=== PATIENT | female | born 1965 | race American Indian/Alaskan Native ===

== ENCOUNTER 2018-11-19 20:58 | Emergency (ER) | payer OTHER ==
[2018-11-19] MEDS ORDERED: DUONEB *Not for PRN Use IH ONE (21:33)
--- NOTE | 2018-11-19 21:35 | Emergency Department Report ---
Blank Doc - Documentation Documentation: 53 y o female hx of asthma presents with coughing and asthma flare up duoneb in traige cxr
--- NOTE | 2018-11-19 22:48 | XRay Report ---
PROCEDURE: XR CHEST ROUTINE 2V TECHNIQUE: PA and lateral chest radiographs were obtained. HISTORY: cough and wheezing COMPARISONS: None. FINDINGS: The cardiomediastinal silhouette appears normal. The lungs are clear. The bones and soft tissues are unremarkable. IMPRESSION: No evidence of acute cardiopulmonary disease. This document is electronically signed by Deepthi Quezada MD., November 19 2018 10:46:17 PM ET
--- NOTE | 2018-11-19 23:54 | Emergency Department Report ---
ED General Adult HPI - General Chief complaint: Dyspnea/Respdistress Stated complaint: ASTHMA Time Seen by Provider: 11/19/18 21:32 Source: patient Mode of arrival: Ambulatory Limitations: No Limitations - History of Present Illness Initial comments: Patient is a 53-year-old [place] female history of asthma or shortness of breath wheezing cough 2 days call if not improving with albuterol inhaler patient denies chest pain no nausea vomiting no diaphoresis no back pain as a symptoms are at 3/10. Symptoms are exacerbated by environmental exposure, s ymptoms are relieved temporarily by albuterol inhaler Onset/Timin -: days(s) Location: head, chest Radiation: non-radiation Severity scale (0 -10): 3 Quality: constant Consistency: constant Improves with: other (albuterol ) Worsens with: other (environmental exposure ) Associated Symptoms: cough, shortness of breath, other (wheezing ) Treatments Prior to Arrival: none - Related Data Previous Rx's Medication Instructions Recorded Last Taken Type ALBUTEROL Inhaler (OR & NICU) 2 puff IH QID PRN #1 inhalation 11/19/18 Unknown Rx [ProAir HFA Inhaler] Azithromycin [Zithromax Z-LAUREN] 250 mg PO DAILY #6 tab 11/19/18 Unknown Rx Codeine Phosphate/Guaifenesin 5 ml PO TID PRN #120 ml 11/19/18 Unknown Rx [Guaifenesin-Codeine Syrup] Ibuprofen [Motrin 800 MG tab] 800 mg PO Q8HR PRN #30 tablet 11/19/18 Unknown Rx predniSONE [Deltasone] 20 mg PO QDAY 5 Days #10 tab 11/19/18 Unknown Rx Allergies Allergy/AdvReac Type Severity Reaction Status Date / Time No Known Allergies Allergy Unverified 11/19/18 21:02 ED Review of Systems ROS: Stated complaint: ASTHMA Other details as noted in HPI Constitutional: denies: chills, fever Eyes: denies: eye pain, eye discharge, vision change ENT: throat pain, congestion. denies: ear pain Respiratory: cough, shortness of breath, wheezing Cardiovascular: denies: chest pain, palpitations Endocrine: no symptoms reported Gastrointestinal: denies: abdominal pain, nausea, diarrhea Genitourinary: denies: urgency, dysuria, discharge Musculoskeletal: denies: back pain, joint swelling, arthralgia Skin: denies: rash, lesions Neurological: denies: headache, weakness, paresthesias Psychiatric: denies: anxiety, depression Hematological/Lymphatic: denies: easy bleeding, easy bruising ED Past Medical Hx - Past Medical History Previous Medical History?: Yes Hx Hypertension: Yes Hx Asthma: Yes Additional medical history: Obesity - Surgical History Past Surgical History?: Yes Hx Cholecystectomy: Yes - Social History Smoking Status: Never Smoker Substance Use Type: None - Medications Home Medications: Home Medications Medication Instructions Recorded Confirmed Last Taken Type ALBUTEROL Inhaler (OR & NICU) 2 puff IH QID PRN #1 inhalation 11/19/18 Unknown Rx [ProAir HFA Inhaler] Azithromycin [Zithromax Z-LAUREN] 250 mg PO DAILY #6 tab 11/19/18 Unknown Rx Codeine Phosphate/Guaifenesin 5 ml PO TID PRN #120 ml 11/19/18 Unknown Rx [Guaifenesin-Codeine Syrup] Ibuprofen [Motrin 800 MG tab] 800 mg PO Q8HR PRN #30 tablet 11/19/18 Unknown Rx predniSONE [Deltasone] 20 mg PO QDAY 5 Days #10 tab 11/19/18 Unknown Rx ED Physical Exam - General Limitations: No Limitations General appearance: alert, in no apparent distress - Head Head exam: Present: atraumatic, normocephalic - Eye Eye exam: Present: normal appearance, PERRL, EOMI. Absent: conjunctival injection, nystagmus Pupils: Present: normal accommodation - ENT ENT exam: Present: mucous membranes moist, TM's normal bilaterally, normal external ear exam - Expanded ENT Exam Expanded Throat exam: Positive: tonsillar erythema, tonsillomegaly, other (uvula midline no exudate no lesions no stridor airway is patent). Negative: tonsillar exudate, R peritonsillar mass, L peritonsillar mass - Neck Neck exam: Present: normal inspection, full ROM. Absent: lymphadenopathy, thyromegaly - Respiratory Respiratory exam: Present: normal lung sounds bilaterally, wheezes, chest wall tenderness (right lateral chest wall tenderness to palpation no swelling no ecchmosis no deformity no crepitus ). Absent: respiratory distress, stridor - Cardiovascular Cardiovascular Exam: Present: regular rate, normal rhythm, normal heart sounds. Absent: systolic murmur, diastolic murmur, rubs, gallop - GI/Abdominal GI/Abdominal exam: Present: soft, normal bowel sounds. Absent: distended, tenderness, guarding, rebound, rigid, bruit, hernia - Rectal Rectal exam: Present: deferred - Extremities Exam Extremities exam: Present: normal inspection, full ROM, normal capillary refill. Absent: tenderness, pedal edema, joint swelling, calf tenderness - Back Exam Back exam: Present: normal inspection, full ROM, tenderness, muscle spasm. Absent: CVA tenderness (R), CVA tenderness (L) - Neurological Exam Neurological exam: Present: alert, oriented X3, CN II-XII intact, normal gait, motor sensory deficit, reflexes normal - Psychiatric Psychiatric exam: Present: normal affect, normal mood - Skin Skin exam: Present: warm, dry, intact, normal color. Absent: rash ED Course Vital Signs 11/19/18 22:10 Pulse Rate [ 90 Bilateral Throughout] Respiratory 18 Rate [Bilateral Throughout] ED Medical Decision Making - Radiology Data Radiology results: report reviewed, image reviewed Ordering Physician: FORTUNATO MORTENSEN Date of Service: 11/19/18 Procedure(s): XR chest routine 2V Accession Number(s): [id number] cc: FORTUNATO MORTENSEN Fluoro Time In Minutes: PROCEDURE: XR CHEST ROUTINE 2V TECHNIQUE: PA and lateral chest radiographs were obtained. HISTORY: cough and wheezing COMPARISONS: None. FINDINGS: The cardiomediastinal silhouette appears normal. The lungs are clear. The bones and soft tissues are unremarkable. IMPRESSION: No evidence of acute cardiopulmonary disease. This document is electronically signed by Shadi Quezada MD., November 19 2018 10:46:17 PM ET Transcribed By: MLWillam Dictated By: SHADI QUEZADA MD Electronically Authenticated By: SHADI QUEZADA MD Signed Date/Time: 11/19/182247 DD/ 14 TD/TT: 11/19/182214 - Medical Decision Making symptoms improve with nebulizer , wheezing resolved , cxr: normal no infiltates no opacities plan: dc to refill albuterol, prednisone, zpack , cheratussion, ibuprofen, follow up with pcp in 2-3 days return to ed if symptoms worsen. pt verbalized agreement and understanding of discharge plan, dc'd to home in stble condition at this time. Critical care attestation.: If time is entered above; I have spent that time in minutes in the direct care of this critically ill patient, excluding procedure time. ED Disposition Clinical Impression: Asthma Qualifiers: Asthma severity: unspecified severity Asthma persistence: intermittent Asthma complication type: with acute exacerbation Qualified Code(s): J45.21 - Mild intermittent asthma with (acute) exacerbation Disposition: DC TO HOME OR SELFCARE Is pt being admited?: No Does the pt Need Aspirin: No Condition: Stable Instructions: Asthma (ED) Prescriptions: predniSONE [Deltasone] 20 mg PO QDAY 5 Days #10 tab Codeine Phosphate/Guaifenesin [Guaifenesin-Codeine Syrup] 5 ml PO TID PRN #120 ml PRN Reason: cough Ibuprofen [Motrin 800 MG tab] 800 mg PO Q8HR PRN #30 tablet PRN Reason: pain fever ALBUTEROL Inhaler (OR & NICU) [ProAir HFA Inhaler] 2 puff IH QID PRN #1 inhalation PRN Reason: Shortness Of Breath Azithromycin [Zithromax Z-LAUREN] 250 mg PO DAILY #6 tab Referrals: [facility] [Outside] - 3-5 Days Forms: Work/School Release Form(ED) Time of Disposition: 00:01
[2018-11-20 01:40] VITALS: BP 143/84
== END 2018-11-20 00:15 | disposition home or self-care (01) ==
LOC: ED 20:58
DX: J45.909 Unspecified asthma, uncomplicated (principal); I10 Essential (primary) hypertension; E66.9 Obesity, unspecified; Z79.1 Long term (current) use of non-steroidal anti-inflammatories (NSAID); Z79.899 Other long term (current) drug therapy; Z68.42 Body mass index [BMI] 45.0-49.9, adult; Z90.49 Acquired absence of other specified parts of digestive tract
CPT/HCPCS: 71046; 94640